=== PATIENT | female | born 1995 | race Hispanic/Latino ===

== ENCOUNTER 2019-04-22 21:31 | Emergency (ER) | payer MEDICAID ==
[~2019-04-22 21:31] MED LIST: FERS325 PO; TYL3 PO
[2019-04-22] MEDS ORDERED: HYOSCYAMINE SULFATE 0.125 MG TAB.SUBL SL ONE (22:03)
[2019-04-22] MEDS ORDERED: ONDANSETRON ODT 4 MG TAB ONE (22:04)
[2019-04-22 22:18] LABS: APPEARANCE,URINE SLIGHTLY CLOUDY (CLEAR); BILIRUBIN,URINE Negative (NEGATIVE); COLOR,URINE Yellow (YELLOW); GLUCOSE, URINE (UA) Negative (NEGATIVE); KETONES,URINE Negative (NEGATIVE); LEUKOCYTE ESTERASE ,URINE Moderate (NEGATIVE); NITRATE,URINE Negative (NEGATIVE); OCCULT BLOOD,URINE Nonhemolyzed Trace (NEGATIVE); PROTEIN,URINE Negative (NEGATIVE)
[2019-04-22 22:19] LABS: HCG,QUAL RESULT POSITIVE (NEGATIVE)
[2019-04-22 22:25] LABS: BACTERIA,URINE Few /HPF (None Seen); SQUAMOUS EPITHELIAL CELL,UR Moderate /HPF (0-2)
== END 2019-04-22 23:10 | disposition home or self-care (01) ==
LOC: EDH 21:31
DX: O23.11 Infections of bladder in pregnancy, first trimester (principal); Z3A.01 Less than 8 weeks gestation of pregnancy
CPT/HCPCS: 81001; 81025; 87804

== ENCOUNTER 2022-10-05 14:12 | Emergency (ER) | payer MEDICAID ==
[~2022-10-05] VITALS: Ht 157.5 cm; Wt 106.1 kg
[2022-10-05] MEDS ORDERED: IBUP-2070 PO (14:40)
[2022-10-05 14:59] LABS: APPEARANCE,URINE CLOUDY (CLEAR); BILIRUBIN,URINE NEGATIVE (NEGATIVE); COLOR,URINE LIGHT-YELLOW (YELLOW); GLUCOSE, URINE (UA) NEGATIVE (NEGATIVE); KETONES,URINE NEGATIVE (NEGATIVE); LEUKOCYTE ESTERASE ,URINE NEGATIVE Leu/uL (NEGATIVE); NITRATE,URINE NEGATIVE (NEGATIVE); PROTEIN,URINE NEGATIVE (NEGATIVE); UROBILINOGEN,URINE 3 mg/dL (0.2-1.0)
[2022-10-05] MEDS ORDERED: ACETAMINOPHEN 500 MG TABLET PO SCH (15:00)
[2022-10-05 15:10] LABS: HCG,QUALITATIVE URINE NEGATIVE (NEGATIVE)
[2022-10-05 15:11] LABS: BACTERIA,URINE RARE /HPF (None Seen); MUCUS,URINE RARE LPF (None Seen); OTHER CASTS, URINE 1 /LPF (None Seen); SQUAMOUS EPITHELIAL CELL,UR MOD /HPF (0-2)
[2022-10-05 16:47] VITALS: BP 135/79
== END 2022-10-05 16:49 | disposition home or self-care (01) ==
LOC: EDH 14:12
DX: S00.83XA Contusion of other part of head, initial encounter (principal); M54.2 Cervicalgia; R07.89 Other chest pain; F10.90 Alcohol use, unspecified, uncomplicated; F17.200 Nicotine dependence, unspecified, uncomplicated; Z79.1 Long term (current) use of non-steroidal anti-inflammatories (NSAID); Y04.0XXA Assault by unarmed brawl or fight, initial encounter; Y93.89 Activity, other specified; Y92.89 Other specified places as the place of occurrence of the external cause; Y99.8 Other external cause status
CPT/HCPCS: 70450; 72125; 81001; 81025